=== PATIENT | female | born 1965 | race Caucasian/White ===

== ENCOUNTER 2018-06-18 06:31 | Day surgery (SDC) | END 2018-06-18 10:26 | disposition home or self-care (01) ==

== ENCOUNTER 2018-11-23 09:40 | Inpatient (IN) | payer OTHER ==
[2018-11-20 16:45] VITALS: BMI 27.6
[~2018-11-23] VITALS: Ht 162.6 cm; Wt 76.9 kg
[2018-11-23] VITALS (23 sets, daily range): BP systolic 108–142; BP diastolic 52–88; PULSE 71–97; RESP 11–30; Ht 162.6 cm; Wt 76.9 kg
[~2018-11-23 09:40] MED LIST: PRAV10TA43 PO
[2018-11-23] MEDS ORDERED: LACTATED RINGER'S 1,000 ML IV* SCH (10:00)
[2018-11-23] MEDS ORDERED: CEFAZOLIN 2 GM/50 ML (PMX) 50 ML IVPB ONE (10:00)
[2018-11-23] MEDS ORDERED: CYCL5TAB PO (10:22)
--- NOTE | 2018-11-23 13:32 | HPN ---
Date/Time of Note Date/Time of Note DATE: 11/23/18 TIME: 13:32 Interval H&P Admission Note Pt. seen H&P reviewed: No system changes ROSALVA JEAN BAPTISTE MD November 23, 2018 13:32
--- NOTE | 2018-11-23 13:48 | PREAC ---
Date/Time of Note Date/Time of Note DATE: 11/23/18 TIME: 13:47 Anesthesia Eval and Record Evaluation Time Pre-Procedure Interview DATE: 11/23/18 TIME: 13:47 Age 52 Sex female NPO: 8 hrs Preoperative diagnosis Lumbar ddd Planned procedure L4-5 Laminectomy Past Medical History Past Medical History: Includes Cardio: Dyslipidemia GI: GERD, Obesity Surgery & Anesthesia Issues No known issue Meds Anticoagulation: No Beta Teresa within 24 hr: No Reason Beta Teresa not given: Pt. not on B-Teresa Reported Medications Cyclobenzaprine Hcl* (Cyclobenzaprine Hcl*) 5 Mg Tablet, 5 MG PO BID PRN for MUSCLE SPASMS, #60 TAB 11/23/18 Pravastatin Sodium* (Pravastatin Sodium*) 10 Mg Tablet, 10 MG PO HS, TAB 11/20/18 Discontinued Reported Medications [Vitamin C And D] No Conflict Check 06/18/18 [Motrin] No Conflict Check 06/18/18 [Ranitidine] No Conflict Check 06/18/18 [Provastatin] No Conflict Check 06/18/18 [Loratadine] No Conflict Check 06/18/18 Current Medications Lactated Ringer's 1,000 ml @ 20 mls/hr Q24H IV ; Start 11/23/18 at 11:30 Meds reviewed: Yes Allergies Coded Allergies: gabapentin (Verified Adverse Reaction, Unknown, HEADACHE AND EYE PAIN, 11/23/18) Allergies Reviewed: Yes Labs/Studies Labs Reviewed: Reviewed by anesthesiologist test: Negative Pre-procedure Exam Last vitals Vital Signs Date Temp Pulse Resp B/P (MAP) Pulse Ox O2 O2 Flow FiO2 Time Delivery Rate 11/23/18 98.0 71 16 127/67 99 Room Air 11:00 (87) Airway: Adequate mouth opening, Adequate thyromental dist Mallampati: Mallampati II Teeth: Normal Lung: Normal Heart: Normal ASA Physical Status ASA physical status: 2 Emergency: None Planned Anesthetic General/MAC: ETT Pre-operative Attestations Prior to commencing anesthesia and surgery, the patient was re-evaluated, there was verification of: *The patient's identity *The results of appropriate recent lab work and preoperative vital signs *The above evaluation not changing prior to induction *Anesthetic plan, risk benefits, alternative and complications discussed with patient/family; questions answered; patient/family understands, accepts and wishes to proceed. MICHAEL CHAVEZ November 23, 2018 13:48
[2018-11-23] MEDS ORDERED: FENTAnyl 50 MCG/ML VIAL IV PRN ×2 (14:00)
[2018-11-23] MEDS ORDERED: ALBUTEROL 0.083% (NEB) 2.5 MG/3 ML AMP HHN PRN (14:00)
[2018-11-23] MEDS ORDERED: ONDANSETRON 4 MG INJ IV PRN ×2 (14:00→17:30)
[2018-11-23] MEDS ORDERED: METOCLOPRAMIDE 10 MG INJ IV PRN (14:00)
[2018-11-23] MEDS ORDERED: DIPHENHYDRAMINE 50 MG INJ IV PRN (14:00)
[2018-11-23] MEDS ORDERED: OXYCODONE/ACETAMINOPHEN (5/325) TAB PO PRN (14:00)
[2018-11-23] MEDS ORDERED: HYDROmorphONE 1 MG/5 ML IV SYRINGE IV PRN ×3 (14:00)
[2018-11-23] MEDS ORDERED: MEPERIDINE 25 MG INJ IV PRN (14:00)
[2018-11-23] MEDS ORDERED: SURGIFOAM POWDER 1 GM KIT ONE (14:04)
[2018-11-23] MEDS ORDERED: GELATIN SIZE 100 SPONGE ONE (14:04)
[2018-11-23] MEDS ORDERED: BUPIVACAINE 0.5%/EPI (SDV) 30 ML INJ ONE (14:05)
[2018-11-23] MEDS ORDERED: POLYMYXIN/BACITRACIN 1L IRRIG ONE (14:05)
[2018-11-23] MEDS ORDERED: THROMBIN (BOVINE) 5,000 UNIT VIAL TP ONE (14:05)
[2018-11-23] MEDS ORDERED: FENTAnyl 50 MCG/ML VIAL ONE (14:22)
[2018-11-23] MEDS ORDERED: CA CHLORIDE 10% 10 ML SYRINGE ONE (14:28)
[2018-11-23] MEDS ORDERED: HEPARIN 1000 UNITS/ML 10 ML INJ ONE (14:28)
[2018-11-23] MEDS ORDERED: PROVENTIL HFA 6.7GM INHALER ONE (14:31)
[2018-11-23] MEDS ORDERED: CEFAZOLIN 1 GM INJ ONE ×2 (14:54→17:00)
[2018-11-23] MEDS ORDERED: SUCCINYLCHOLINE CHLORIDE 100 MG/5 ML SYG IV ONE (17:00)
[2018-11-23] MEDS ORDERED: LIDOCAINE 100 MG SYRINGE ONE (17:00)
[2018-11-23] MEDS ORDERED: ROCURONIUM 50 MG INJ ONE (17:00)
[2018-11-23] MEDS ORDERED: PROPOFOL 20 ML ONE (17:00)
[2018-11-23] MEDS ORDERED: SUGAMMADEX SODIUM 200 MG/2 ML VIAL IV ONE (17:00)
--- NOTE | 2018-11-23 17:19 | OPR ---
Date/Time of Note Date/Time of Note DATE: 11/23/18 TIME: 17:09 Operative Report Free Text/Dictation DATE OF OPERATION: 11/23/2018 PREOPERATIVE DIAGNOSES: 1.L4-5 bilateral spinal stenosis with radiculopathy and neurogenic claudication POSTOPERATIVE DIAGNOSES: 1.L4-5 bilateral spinal stenosis with radiculopathy and neurogenic claudication 2. Durotomy OPERATION PERFORMED: 1. Bilateral L4-5 partial laminectomy, medial facetectomy, and foraminotomy 2. Repair of durotomy SURGEON: Rosalva Jean Baptiste MD [employer] MOTHER: Patrick Pelayo MD ANESTHESIA: General endotracheal ESTIMATED BLOOD LOSS: 200 mL SURGICAL INDICATION: The patient is a 52 year-old female who presents with an increasing history of bilateral lower extremity pain with weakness. The patient was unable to ambulate significant distances secondary to their pain and weakness. The patient had failed conservative treatment. Risks, benefits, and alternatives to a decompressive procedure including but not exclusive of risks of bleeding, infection, nerve injury, cauda equina syndrome, iatrogenic instability, dural tear, myocardial infarction, stroke, pulmonary embolism were explained to the patient, and she wished to proceed. DESCRIPTION OF TECHNIQUE: The patient was identified in the preoperative area and taken to the operating room. Rapid induction of general endotracheal anesthesia was performed. Patient was given 2 g of cefazolin for prophylaxis. The patient was then placed in the prone position on the axis table with all bony prominences well padded. The back was prepped and draped in usual sterile manner. Using a spinal needle and intraoperative fluoroscopy, the L4-5 level was clearly identified. The skin was injected using 0.5% Marcaine with epinephrine. Longitudinal midline incision was then created using a 10 blade. Further dissection through soft tissue was performed using electrocautery down to the bilateral L4 spinous processes. Dissection was taken down over the lamina and ov er the facet joint capsule. A self-retaining retractor was applied. Again, intraoperative fluoroscopy confirmed the level. The microscope was brought into use for microdissection. The high-speed bur was used to thin the caudal aspect of the biltaeral L4 lamina. Kerrison rongeurs were then used to resect the lamina, the small portion of the medial facet and the bone overlying the foramen. Ligamentum flavum was also resected using the Kerrison rongeurs. Care was taken to protect the thecal sac throughout the decompressive procedure. The dura was scarred and adherent to the hypertrophic ligamentum. During the decompressive procedure and durotomy was identified meausring 1mm x 1mm. This was repaired using 4-0 neurolon on a tapered needle using running locking stiches. Palpation with a ball-tip probe did not reveal any further stenosis in the central, subarticular, or foraminal areas. The exiting L4 nerve roots and traversing L5 nerve roots were both directly visualized and noted to be decompressed. The wound was irrigated copiously using normal saline. Meticulous attention was paid toward hemostasis using bipolar cautery, FloSeal, Gelfoam and thrombin. Care was taken to remove all FloSeal and Gelfoam and thrombin prior to wound closure. At the end of the case a valsalva to 40 mmHg did not reveal any leak. The durotomy site was reinforced w/ a 1inch x 1 inch duragen and tisseal sealant. The fascia was then closed using 1 Vicryl in interrupted fashion. Subcutaneous tissue was closed using 2-0 Vicryl in interrupted fashion. Skin was closed using a running 4-0 Monocryl stitch. The wound was dressed using Dermabond, sterile 4x4 gauze and Tegaderm. The patient was returned to the supine position. They were extubated immediately postoperatively and taken to the recovery room in stable condition. COMPLICATIONS: Durotomy Procedure Date: November 23, 2018 Preoperative Diagnosis 1.L4-5 bilateral spinal stenosis with radiculopathy and neurogenic claudication Postoperative Diagnosis 1.L4-5 bilateral spinal stenosis with radiculopathy and neurogenic claudication 2. Durotomy Operation/Procedure Performed 1. Bilateral L4-5 partial laminectomy, medial facetectomy, and foraminotomy 2. Repair of durotomy Surgeon see signature line Lead Java Programmer Patrick Pelayo MD Anesthesia Type: general Estimated Blood Loss: 150 - 200 ml's Transfusion none Specimen none Grafts/Implants none Complications none Pt Condition Post Procedure: stable Procedure Description DESCRIPTION OF TECHNIQUE: The patient was identified in the preoperative area and taken to the operating room. Rapid induction of general endotracheal anesthesia was performed. Patient was given 2 g of cefazolin for prophylaxis. The patient was then placed in the prone position on the axis table with all bony prominences well padded. The back was prepped and draped in usual sterile manner. Using a spinal needle and intraoperative fluoroscopy, the L4-5 level was clearly identified. The skin was injected using 0.5% Marcaine with epinephrine. Longitudinal midline incision was then created using a 10 blade. Further dissection through soft tissue was performed using electrocautery down to the bilateral L4 spinous processes. Dissection was taken down over the lamina and over the facet joint capsule. A self-retaining retractor was applied. Again, intraoperative fluoroscopy confirmed the level. The microscope was brought into use for microdissection. The high-speed bur was used to thin the caudal aspect of the biltaeral L4 lamina. Kerrison rongeurs wer e then used to resect the lamina, the small portion of the medial facet and the bone overlying the foramen. Ligamentum flavum was also resected using the Kerrison rongeurs. Care was taken to protect the thecal sac throughout the decompressive procedure. The dura was scarred and adherent to the hypertrophic ligamentum. During the decompressive procedure and durotomy was identified m eausring 1mm x 1mm. This was repaired using 4-0 neurolon on a tapered needle using running locking stiches. Palpation with a ball-tip probe did not reveal any further stenosis in the central, subarticular, or foraminal areas. The exiting L4 nerve roots and traversing L5 nerve roots were both directly visualized and noted to be decompressed. The wound was irrigated copiously using normal saline. Meticulous attention was paid toward hemostasis using bipolar cautery, FloSeal, Gelfoam and thrombin. Care was taken to remove all FloSeal and Gelfoam and thrombin prior to wound closure. At the end of the case a valsalva to 40 mmHg did not reveal any leak. The durotomy site was reinforced w/ a 1inch x 1 inch duragen and tisseal sealant. The fascia was then closed using 1 Vicryl in interrupted fashion. Subcutaneous tissue was closed using 2-0 Vicryl in interrupted fashion. Skin was closed using a running 4-0 Monocryl stitch. The wound was dressed using Dermabond, sterile 4x4 gauze and Tegaderm. The patient was returned to the supine position. They were extubated immediately postoperatively and taken to the recovery room in stable condition. COMPLICATIONS: Durotomy ROSALVA JEAN BAPTISTE MD November 23, 2018 17:19
[2018-11-23] MEDS ORDERED: HYDROmorphONE 0.2 MG/ML PCA ONE (17:23)
[2018-11-23] MEDS ORDERED: HYDROCODONE/APAP (5/325) TAB PO PRN (17:30)
[2018-11-23] MEDS ORDERED: NALOXONE (0.4 MG/ML) INJ IV PRN (17:30)
[2018-11-23] MEDS ORDERED: NACL 0.9% 3 ML SYG IV SCH (17:30)
[2018-11-23] MEDS ORDERED: HYDROmorphONE 0.2 MG/ML PCA IV SCH (17:30)
[2018-11-23] MEDS ORDERED: AL HYDROX/MG HYDROX/SIMETH 30 ML CUP PO PRN (17:30)
[2018-11-23] MEDS ORDERED: ACETAMINOPHEN 325 MG TAB PO PRN (17:30)
[2018-11-23] MEDS ORDERED: PROCHLORPERAZINE 10 MG TAB PO PRN (17:30)
[2018-11-23] MEDS: CEFAZOLIN 1 GM/50 ML (PMX) 50 ML IVPB SCH (17:54)
--- NOTE | 2018-11-23 17:54 | PAC ---
Date/Time of Note Date/Time of Note DATE: 11/23/18 TIME: 17:54 Post-Anesthesia Notes Post-Anesthesia Note Last documented vital signs Vital Signs Date Temp Pulse Resp B/P (MAP) Pulse Ox O2 O2 Flow FiO2 Time Delivery Rate 11/23/18 98.0 81 20 119/88 100 Mask 8.0 17:15 (98) Activity: WNL Respiratory function: WNL Cardiovascular function: WNL Mental status: Baseline Pain reasonably controlled: Yes Hydration appropriate: Yes Nausea/Vomiting absent: Yes MICHAEL CHAVEZ November 23, 2018 17:54
--- NOTE | 2018-11-23 19:00 | CONS ---
DATE OF ADMISSION: 11/23/2018 DATE OF CONSULTATION: 11/23/2018 TYPE OF CONSULTATION: Postop medical consultation. Thank you very much for allowing me to evaluate this 52-year-old female who just underwent lumbar miguel k surgery. HISTORICAL EVENTS: As you well know, this patient has lumbar degenerative disk disease involving L4- L5 with moderate to severe central and subarticular stenosis with accompanying radiculopathy. Becaus e of symptoms related to this and her not improving with conservative therapy, she elected to proceed with surgery. Postoperatively, she has modest back pain, but without cough, wheezing, shortness of breath, nausea, vomiting, abdominal or chest pain. PAST MEDICAL HISTORY: Includes: 1. Prediabetes. 2. History of elevated liver enzymes. 3. Hyperlipidemia. 4. History of gastroesophageal reflux disease. 5. Overweight. 6. coronary artery disease. 8. History of "fluid removed from her spine as too much fluid was in her brain". This occurring in excess of 15 years ago. FAMILY HISTORY: Positive for coronary artery disease and hypertension. SOCIAL HISTORY: She does not smoke. ALLERGIES: NONE. MEDICATIONS: 1. Glucosamine. 2. Zoloft 25 mg per day. 3. Baclofen 10.5 mg t.i.d. 4. Pravastatin 20 mg per day. PHYSICAL EXAMINATION: GENERAL: [place] female, in no acute distress. VITAL SIGNS: BP 122/80, pulse 70, respirations were 18. She was afebrile. HEENT: Eyes, extraocular muscles were full. Nose, mouth and throat are normal. NECK: Supple. There was no jugular venous distention, thyroid enlargement or adenopathy. Carotids 2+. LUNGS: Clear. HEART: Rhythm was regular, no murmur. No third or fourth sound. ABDOMEN: Nontender. Liver and spleen were not palpable. No mass or tenderness were noted. EXTREMITIES: No edema. Calves nontender. IMPRESSION AND PLAN: 1. Stable postop. We will follow daily. 2. Mood disorder. Will continue Zoloft. 3. We will follow daily for signs and symptoms of thromboembolic disease. 4. We will confirm whether indeed she is taking a statin for hyperlipidemia. Dictated By: RENETTA CHAVIS/DIYA Conf#: [id number] DID#: [id number] CC: YOLANDE CLEMENT MD;*EndCC*
[2018-11-23] MEDS: LACTATED RINGER'S 1,000 ML IV SCH (19:05)
[2018-11-23] MEDS: ATORVASTATIN 10 MG TAB PO SCH (21:00)
[2018-11-24] VITALS: BP 125/59; PULSE 92
[2018-11-24 00:29] VITALS: BP 130/63; PULSE 89; RESP 17
[2018-11-24] MEDS: CEFAZOLIN 1 GM/50 ML (PMX) 50 ML IVPB SCH ×3 (00:32→11:52)
[2018-11-24 01:03] VITALS: BP 137/66; PULSE 94; RESP 18
[2018-11-24] MEDS: PANTOPRAZOLE (EC) 40 MG TAB PO SCH (05:38)
[2018-11-24 07:52] VITALS: BP 132/62; PULSE 92; RESP 19
--- NOTE | 2018-11-24 08:11 | CONS ---
Assessment/Plan Assessment/Plan Assessment/Plan (Daily) 1. Stable post op lumbar laminectomy 2. Hyperlipidemia, on statin 3. Labs rev Consultation Date/Type/Reason Admit Date/Time November 23, 2018 at 09:40 Initial Consult Date Date/Time of Note DATE: 11/24/18 TIME: 08:10 Detailed Summary Respiratory: No cough, No shortness of breath Cardiovascular: No chest pain Gastrointestinal: no complaints Genitourinary: other (eid in place) Musculoskeletal: back pain (mild) Exam/Review of Systems Exam Vitals Vital Signs Date Temp Pulse Resp B/P (MAP) Pulse Ox O2 O2 Flow FiO2 Time Delivery Rate 11/24/18 98.2 92 19 132/62 99 07:52 (85) 11/24/18 Room Air 01:03 11/23/18 8.0 17:15 Intake and Output 11/23/18 11/23/18 11/24/18 1414:59 22:59 06:59 IntakeIntake Total 1240 ml 450 ml OutputOutput Total 550 ml 1100 ml BalanceBalance 690 ml -650 ml Neck: No jvd Respiratory: clear to auscultation Cardiovascular: regular rate and rhythm Gastrointestinal: soft Extremities: No calf tenderness, No edema Results Result Diagram: 11/24/18 0445 11/24/18 0445 Results 24hrs Laboratory Tests Test 11/24/18 04:45 11/24/18 08:09 Hemoglobin 12.1 Hematocrit 37.1 Sodium Level 140 Potassium Level 4.1 Chloride Level 104 Carbon Dioxide Level 27 Anion Gap 9 Blood Urea Nitrogen 9 Creatinine 0.57 Est Glomerular Filtrat Rate mL/min > 60 Glucose Level 130 Calcium Level 8.9 Lab Scanned Report REFERENCE LAB Medications Medication Current Medications Lactated Ringer's 1,000 ml @ 20 mls/hr Q24H IV Last administered on 11/23/18at 19:05; Admin Dose 20 MLS/HR; Start 11/23/18 at 11:30 Acetaminophen/ Hydrocodone Bitart ([place] (5/325)) 1 tab Q4H PRN PO .PAIN 1-5; Start 11/23/18 at 17:30 Acetaminophen/ Hydrocodone Bitart ([place] (5/325)) 2 tab Q4H PRN PO .PAIN 6-10; Start 11/23/18 at 17:30 Cefazolin Sodium 50 ml @ 100 mls/hr Q6 IVPB Last administered on 11/24/18at 05:38; Admin Dose 100 MLS/HR; Start 11/23/18 at 18:00; Stop 11/24/18 at 12:29 Prochlorperazine (Compazine) 10 mg Q4H PRN PO NAUSEA/VOMITING; Start 11/23/18 at 17:30 Ondansetron HCl (Zofran Inj) 4 mg Q6H PRN IV NAUSEA/VOMITING Last administered on 11/24/18at 00:32; Admin Dose 4 MG; Start 11/23/18 at 17:30 Al Hydrox/Mg Hydrox/Simethicone (Mag-Al Plus) 15 ml Q4H PRN PO .CONSTIPATION; Start 11/23/18 at 17:30 Docusate Sodium (Colace) 100 mg BID PO ; Start 11/24/18 at 09:00 Acetaminophen (Tylenol Tab) 650 mg Q4H PRN PO TEMP GREATER THAN 101F OR FORRESTER; Start 11/23/18 at 17:30 IV Flush (NS 3 ml) 3 ml PER PROTOCOL IV ; Start 11/23/18 at 17:30 Hydromorphone HCl (Dilaudid BRILLIANDEER LOPPER) Q4PCA IV Last administered on 11/23/18at 17:48; Admin Dose 6 MG; Start 11/23/18 at 17:30 Naloxone HCl (Narcan) 0.2 mg Q2M PRN IV RR 8 BREATHS/MIN OR LESS; Start 11/23/18 at 17:30 Atorvastatin Calcium (Lipitor) 10 mg DAILY@21 PO ; Start 11/23/18 at 21:00 Pantoprazole (Protonix Tab) 40 mg DAILY@06 PO Last administered on 11/24/18at 05:38; Admin Dose 40 MG; Start 11/24/18 at 06:00 RENETTA MEDINA MD November 24, 2018 08:11
[2018-11-24] MEDS: DOCUSATE SODIUM 100 MG CAP PO SCH ×2 (08:24→20:59)
[2018-11-24] MEDS: LACTATED RINGER'S 1,000 ML IV SCH (11:30)
--- NOTE | 2018-11-24 13:31 | CONS ---
Consultation Date/Type/Reason Admit Date/Time November 23, 2018 at 09:40 Initial Consult Date Date/Time of Note DATE: 11/24/18 TIME: 13:28 24 HR Interval Summary Free Text/Dictation S: 52 yo F POD#1 s/p L4-5 decompression w/ durotomy s/p repair. Patient reports improvement in leg pain. Pain controlled w/ SUPERVISOR MILL. No acute events over-night. Has been on bedrest x 24 hrs. Will get OOB w/ PT today. Mild FORRESTER which has improved. O: AFVSS Gen: AAox3, NAD Spine: neurostable, incision C/D/I A/P:52 yo F POD#1 s/p L4-5 decompression w/ durotomy s/p repair 1. D/C SUPERVISOR MILL 2. OOB w/ PT 3. D/C eid once claered by PT 4. Dispo planning for tomorrow Exam/Review of Systems Exam Vitals Vital Signs Date Temp Pulse Resp B/P (MAP) Pulse Ox O2 O2 Flow FiO2 Time Delivery Rate 11/24/18 18 13:00 11/24/18 98.2 92 132/62 99 07:52 (85) 11/24/18 Room Air 01:03 11/23/18 8.0 17:15 Intake and Output 11/23/18 11/23/18 11/24/18 1515:00 23:00 07:00 IntakeIntake Total 1240 ml 450 ml OutputOutput Total 550 ml 1100 ml BalanceBalance 690 ml -650 ml Results Result Diagram: 11/24/18 0445 11/24/18 0445 Results 24hrs Laboratory Tests Test 11/24/18 04:45 11/24/18 08:09 Hemoglobin 12.1 Hematocrit 37.1 Sodium Level 140 Potassium Level 4.1 Chloride Level 104 Carbon Dioxide Level 27 Anion Gap 9 Blood Urea Nitrogen 9 Creatinine 0.57 Est Glomerular Filtrat Rate mL/min > 60 Glucose Level 130 Calcium Level 8.9 Lab Scanned Report REFERENCE LAB Medications Medication Current Medications Lactated Ringer's 1,000 ml @ 20 mls/hr Q24H IV Last administered on 11/23/18at 19:05; Admin Dose 20 MLS/HR; Start 11/23/18 at 11:30 Acetaminophen/ Hydrocodone Bitart ([place] (5/325)) 1 tab Q4H PRN PO .PAIN 1-5; Start 11/23/18 at 17:30 Acetaminophen/ Hydrocodone Bitart ([place] (5/325)) 2 tab Q4H PRN PO .PAIN 6-10; Start 11/23/18 at 17:30 Prochlorperazine (Compazine) 10 mg Q4H PRN PO NAUSEA/VOMITING; Start 11/23/18 at 17:30 Ondansetron HCl (Zofran Inj) 4 mg Q6H PRN IV NAUSEA/VOMITING Last administered on 11/24/18at 00:32; Admin Dose 4 MG; Start 11/23/18 at 17:30 Al Hydrox/Mg Hydrox/Simethicone (Mag-Al Plus) 15 ml Q4H PRN PO .CONSTIPATION; Start 11/23/18 at 17:30 Docusate Sodium (Colace) 100 mg BID PO Last administered on 11/24/18at 08:24; Admin Dose 100 MG; Start 11/24/18 at 09:00 Acetaminophen (Tylenol Tab) 650 mg Q4H PRN PO TEMP GREATER THAN 101F OR FORRESTER; Start 11/23/18 at 17:30 IV Flush (NS 3 ml) 3 ml PER PROTOCOL IV ; Start 11/23/18 at 17:30 Hydromorphone HCl (Dilaudid SUPERVISOR MILL) Q4PCA IV Last administered on 11/23/18at 17:48; Admin Dose 6 MG; Start 11/23/18 at 17:30 Naloxone HCl (Narcan) 0.2 mg Q2M PRN IV RR 8 BREATHS/MIN OR LESS; Start 11/23/18 at 17:30 Atorvastatin Calcium (Lipitor) 10 mg DAILY@21 PO ; Start 11/23/18 at 21:00 Pantoprazole (Protonix Tab) 40 mg DAILY@06 PO Last administered on 11/24/18at 05:38; Admin Dose 40 MG; Start 11/24/18 at 06:00 ROSALVA JEAN BAPTISTE MD November 24, 2018 13:31
[2018-11-24 13:51] VITALS: BP 129/64; PULSE 88; RESP 18
[2018-11-24] MEDS: HYDROCODONE/APAP (5/325) TAB PO PRN (14:05)
[2018-11-24] MEDS ORDERED: DEXTROSE 5%-0.45% NACL 1,000 ML IV SCH (19:00)
[2018-11-24 20:10] VITALS: BP 137/67; PULSE 67; RESP 18
[2018-11-24] MEDS: ATORVASTATIN 10 MG TAB PO SCH (21:01)
[2018-11-24] MEDS: DEXTROSE 5%-0.9% NACL 1,000 ML IV SCH (21:01)
[2018-11-25] MEDS: HYDROCODONE/APAP (5/325) TAB PO PRN ×2 (00:11→08:43)
[2018-11-25 01:45] VITALS: BP 107/54; PULSE 84; RESP 18
[2018-11-25] MEDS: PANTOPRAZOLE (EC) 40 MG TAB PO SCH (05:32)
--- NOTE | 2018-11-25 08:16 | CONS ---
Assessment/Plan Assessment/Plan Assessment/Plan (Daily) 1. Doing very well post op 2. Low grade temp, will order u/a and cult 3. Can dc if ok with ortho and pt Consultation Date/Type/Reason Admit Date/Time November 23, 2018 at 09:40 Initial Consult Date Date/Time of Note DATE: 11/25/18 TIME: 08:14 Detailed Summary Respiratory: No cough, No shortness of breath Cardiovascular: No chest pain Gastrointestinal: no complaints Genitourinary: no complaints Musculoskeletal: back pain (is less) Exam/Review of Systems Exam Vitals Vital Signs Date Temp Pulse Resp B/P (MAP) Pulse Ox O2 O2 Flow FiO2 Time Delivery Rate 11/25/18 99.4 84 18 107/54 93 01:45 (71) 11/24/18 Room Air 01:03 11/23/18 8.0 17:15 Intake and Output 11/24/18 11/24/18 11/25/18 1515:00 23:00 07:00 IntakeIntake Total 190 ml 580 ml 1225 ml OutputOutput Total 1600 ml BalanceBalance 190 ml -1020 ml 1225 ml Neck: No jvd Respiratory: clear to auscultation Cardiovascular: regular rate and rhythm Gastrointestinal: soft Extremities: No calf tenderness, No edema Results Result Diagram: 11/25/18 0432 11/25/18 0432 Results 24hrs Laboratory Tests Test 11/25/18 04:32 White Blood Count 10.2 Red Blood Count 3.93 L Hemoglobin 12.6 Hematocrit 38.5 Mean Corpuscular Volume 98.0 Mean Corpuscular Hemoglobin 32.1 Mean Corpuscular Hemoglobin Concent 32.7 Red Cell Distribution Width 12.7 Platelet Count 266 Mean Platelet Volume 10.4 Immature Granulocytes % 0.400 Neutrophils % 69.7 Lymphocytes % 19.5 Monocytes % 10.0 Eosinophils % 0.0 Basophils % 0.4 Nucleated Red Blood Cells % 0.0 Immature Granulocytes # 0.040 H Neutrophils # 7.1 Lymphocytes # 2.0 Monocytes # 1.0 H Eosinophils # 0.0 Basophils # 0.0 Nucleated Red Blood Cells # 0.0 Sodium Level 140 Potassium Level 3.9 Chloride Level 105 Carbon Dioxide Level 30 Anion Gap 5 Blood Urea Nitrogen 7 Creatinine 0.70 Est Glomerular Filtrat Rate mL/min > 60 Glucose Level 105 Calcium Level 8.9 Phosphorus Level 3.0 Magnesium Level 2.2 Medications Medication Current Medications Lactated Ringer's 1,000 ml @ 20 mls/hr Q24H IV Last administered on 11/23/18 19:05; Admin Dose 20 MLS/HR; Start 11/23/18 at 11:30 Acetaminophen/ Hydrocodone Bitart ([place] (5/325)) 1 tab Q4H PRN PO .PAIN 1-5; Start 11/23/18 at 17:30 Acetaminophen/ Hydrocodone Bitart ([place] (5/325)) 2 tab Q4H PRN PO .PAIN 6-10 Last administered on 11/25/18 00:11; Admin Dose 2 TAB; Start 11/23/18 at 17:30 Prochlorperazine (Compazine) 10 mg Q4H PRN PO NAUSEA/VOMITING; Start 11/23/18 at 17:30 Ondansetron HCl (Zofran Inj) 4 mg Q6H PRN IV NAUSEA/VOMITING Last administered on 11/24/18at 00:32; Admin Dose 4 MG; Start 11/23/18 at 17:30 Al Hydrox/Mg Hydrox/Simethicone (Mag-Al Plus) 15 ml Q4H PRN PO .CONSTIPATION; Start 11/23/18 at 17:30 Docusate Sodium (Colace) 100 mg BID PO Last administered on 11/24/18at 20:59; Admin Dose 100 MG; Start 11/24/18 at 09:00 Acetaminophen (Tylenol Tab) 650 mg Q4H PRN PO TEMP GREATER THAN 101F OR FORRESTER; Start 11/23/18 at 17:30 IV Flush (NS 3 ml) 3 ml PER PROTOCOL IV ; Start 11/23/18 at 17:30 Naloxone HCl (Narcan) 0.2 mg Q2M PRN IV RR 8 BREATHS/MIN OR LESS; Start 11/23/18 at 17:30 Atorvastatin Calcium (Lipitor) 10 mg DAILY@21 PO Last administered on 11/24/18 21:01; Admin Dose 10 MG; Start 11/23/18 at 21:00 Pantoprazole (Protonix Tab) 40 mg DAILY@06 PO Last administered on 11/25/18 05:32; Admin Dose 40 MG; Start 11/24/18 at 06:00 Dextrose/Sodium Chloride 1,000 ml @ 75 mls/hr [id number] IV Last administered on 11/24/18at 21:01; Admin Dose 75 MLS/HR; Start 11/24/18 at 20:00 RENETTA MEDINA MD November 25, 2018 08:16
[2018-11-25 08:32] VITALS: BP 119/58; PULSE 75; RESP 18
[2018-11-25] MEDS: DOCUSATE SODIUM 100 MG CAP PO SCH (08:42)
[2018-11-25] MEDS: DEXTROSE 5%-0.9% NACL 1,000 ML IV SCH (09:34)
[2018-11-25 14:00] VITALS: BP 118/60; PULSE 80; RESP 18
== END 2018-11-25 15:35 | disposition home or self-care (01) | DRG 519 ==
LOC: REC 09:40 → MS1 20:33
PROVIDERS: ADMIT Orthopaedic Surgery; ATTEND Orthopaedic Surgery
PROC: 00QT0ZZ Repair Spinal Meninges, Open Approach (ICD-10-PCS; 2018-11-23)
PROC: 01NB0ZZ Release Lumbar Nerve, Open Approach (ICD-10-PCS; principal; 2018-11-23 12:00)
DX: M51.16 Intervertebral disc disorders with radiculopathy, lumbar region (principal); G97.41 Accidental puncture or laceration of dura during a procedure; M48.062 Spinal stenosis, lumbar region with neurogenic claudication; E78.5 Hyperlipidemia, unspecified; I25.10 Atherosclerotic heart disease of native coronary artery without angina pectoris; K21.9 Gastro-esophageal reflux disease without esophagitis; E66.9 Obesity, unspecified
CPT/HCPCS: 72110; 80048; 81001; 83735; 84100; 85014; 85018; 85025; 87086; 97116; 97162; 97530; J0690; J1170; J1644; J2001; J2175; J2405; J3010; J7042; J7120